=== PATIENT | male | born 1985 | race Caucasian/White ===

== ENCOUNTER 2020-01-23 16:33 | Emergency (ER) | payer MEDICAID, SELFPAY ==
[2020-01-23 16:39] VITALS: BP 159/97; RESP 20; TEMP 37.2; O2SAT 97; BMI 56.9
--- NOTE | 2020-01-23 16:47 | ED.GENADULT ---
HPI - General Adult General Chief complaint: General Medical Stated complaint: flu like Time Seen by Provider: 01/23/20 16:38 Source: patient Mode of arrival: ambulatory Limitations: no limitations History of Present Illness HPI narrative: Patient comes to the emergency room complaining of 2 days of body aches and dry cough. Patient states yesterday he had a headache, took ibuprofen and the headache resolved. Patient concerned that he may have COVID because his elderly mother has similar symptoms as well. Patient denies fever or chills MD complaint: Flu-like symptoms Related Data Allergies Allergy/AdvReac Type Severity Reaction Status Date / Time bee pollen [BEE STINGS] Allergy Unknown ANAPHYLAXIS Unverified 11/14/19 16:17 bees Allergy Unknown anaphylaxis Uncoded 02/25/19 00:00 Review of Systems Review of Systems: Constitutional : No Weight loss, No Fever, No Chills, complaining of fatigue and general malaise ENT/Mouth : No Hearing loss, No Ear Pain, No Nasal Congestion, No Sinus Pain, No Hoarseness, mild sore throat, No Rhinorrhea, No Swallowing Difficulty Eyes: No Eye Pain, No Swelling, No Redness, No Foreign Body, No Discharge, No Vision Changes Cardiovascular : No Chest Pain, No SOB, No Dyspnea on Exertion, No Orthopnea, No Edema, No Palpitations Respiratory : Complaining of mild dry Cough, No Sputum, No Wheezing, No Smoke Exposure, No Dyspnea Gastrointestinal : No Nausea, No Vomiting, No Diarrhea, No Constipation, No abdominal Pain, No Hematochezia, No Melena Genitourinary : no irregular bleeding, No Dysuria, No Urinary Frequency, No Hematuria, No Urinary Incontinence, No Urgency, No Flank Pain, No Urinary Flow Changes, No Hesitancy Musculoskeletal : No joint pain, No Myalgias, No Joint Swelling Skin : No Skin Lesions, No rash Neuro : No Weakness, No Numbness, No Paresthesias, No Loss of Consciousness, No Dizziness, No Headache Psych : No Anxiety/Panic, No Depression, No SI/HI/AH/VH, No Social Issues, Heme/Lymph: No Bruising, No Bleeding,No Lymphadenopathy Endocrine : No Polyuria, No Polydipsia, No Temperature Intolerance PMF Past Medical History Medical History HTN (hypertension) Social History Social History Advance Directives: No Advance Directives Information Provided: Yes Physical Exam Vital Signs: Vital Signs: Last Vital Signs Temp 99.0 F 01/23/20 16:39 Resp 20 01/23/20 16:39 BP 159/97 H 01/23/20 16:39 Pulse Ox 97 01/23/20 16:39 Body Mass Index 56.9 Appearance: Alert. Oriented X3. No acute distress. Eyes: Pupils equal, round and reactive to light. ENT: Pharynx normal. Neck: Normal inspection. Neck supple. No lymph nodes noted. No crepitus CVS: Normal heart rate and rhythm. Pulses normal. Normal S1 and S2 Respiratory: No respiratory distress. Breath sounds normal. No Wheezing. No rales Abdomen: Soft and nontender. No rigidity. No distention. good BS x4 Skin: Skin warm and dry. Normal skin color. Normal skin turgor. Extremities: No lower extremity edema. No lower extremity edema. No Lacerations. No Rash Neuro: Oriented X 3. No motor deficit. No sensory deficit. Moving all extermities. No slurred speech. Course Course Course Narrative: I discussed with the patient he may have a viral syndrome, patient instructed to self isolate, patient tested for COVID-19, results will be communicated to the patient in approximately 72 hours. Discharge Plan Discharge Clinical Impression: Viral syndrome Patient Disposition: Home, Self-Care Instructions: Viral Syndrome (ED) Additional Instructions: You were tested for COVID-19. The results will be available in approximately 72 hours. Please remain self isolated
== END 2020-01-23 17:09 | disposition home or self-care (01) ==
PROVIDERS: Emergency Provider Emergency Medicine
DX: B34.9 Viral infection, unspecified (principal); M79.10 Myalgia, unspecified site; Z20.828 Contact with and (suspected) exposure to other viral communicable diseases
CPT/HCPCS: 99283; U0003

== ENCOUNTER 2020-01-31 17:40 | Outpatient (REF) | payer MEDICAID, SELFPAY | END 2020-01-31 17:41 | disposition home or self-care (01) | LOC: HO.LAB 17:40 | PROVIDERS: Visit Provider Internal Medicine | DX: Z20.828 Contact with and (suspected) exposure to other viral communicable diseases (principal) | CPT/HCPCS: C9803; U0003 ==

== ENCOUNTER → 2022-11-18 14:38 | Outpatient (BNVA) | payer SELFPAY | PROVIDERS: Visit Provider Physician Assistant | DX: Z02.1 Encounter for pre-employment examination (principal) ==

== ENCOUNTER 2024-07-10 15:21 | Outpatient (REF) | payer MEDICAID, SELFPAY ==
--- OUTSIDE RECORDS SUMMARY | 2024-07-10 15:24 | XMS_ITS | Encounter Summary ---
Author Organization [employer] Address [address] [place] [address] Care Team Providers Care Clinical Nursing Assistant Name Role Phone LeanderTashia miller KIP Primary Care Provider [phone] Encounter Details Date Type Department Care Team (Latest Contact Info) Description 07/10/2024 Travel Social History Tobacco Use Types Packs/Day Years Used Date Smoking Tobacco: Never Smokeless Tobacco: Never Alcohol Use Standard Drinks/Week Comments Never 0 (1 standard drink = 0.6 oz pure alcohol) drinks 3 cups of liquor or 6 beers on occassion when family gets togther about 3x a month Alcohol Answer Date Recorded How often do you have a drink containing alcohol ? 2 07/10/2024 How many drinks containing a lcohol do you have on a typical day when you are drinking? 1 07/10/2024 How often do you have six or more drinks on one occasion? 0 07/10/2024 Depression Answer Date Recorded Patient Health Questionnaire-9 Score 1 07/10/2024 Patient Health Questionnaire-9 Score 1 07/10/2024 Last PHQ-9: Questionnaire Data Not on file 0 07/10/2024 Housing Stability Answer Date Recorded What is your housing situation today? I have noemí solis 07/03/[address] you li ve. Do you have problems with any of the following? None of the above 07/03/2024 Food Insecurity Answer Date Recorded Within the past 12 months, y ou worried that your food would run out before you got money to buy more: Never True 07/03/2024 Within the past 12 months,th e food you bought just didn't last and you didn't have enough money to get more: Never True 08/2024 Transportation Answer Date Recorded In the past 12 months, has l ack of transportation kept you from medical appts, meetings, work or from getting things needed for daily living? No 07/03/2024 Utilities Answer Date Recorded In the past 12 months, has t he electric, gas, oil or water company threatened to shut off services in your home? No 07/03/2024 Depression Answer Date Recorded Patient Health Questionnaire-2 Score 0 07/10/2024 Internet Access Answer Date Recorded Internet Access Q1 Yes 07/03/2024 Internet Access Q2 Not on file 07/03/2024 Sex and Gender Information Value Date Recorded Sex Assigned at Male 12/27/2021 10:14 AM EDT Legal Sex Male 10:14 AM EDT Gender Identity Choose not to disclose 10:14 AM EDT Sexual Orientation Choose not to disclose 2021 10:14 AM EDT documented as of this encounter Functional Status * Over the past 2 weeks, how often have you been bothered by any of the following problems? Question Answer Date of Assessment Author Patient Health Questionnaire -2 Score 0 07/10/2024 3:22 PM EDT Ángel Garcia MA * Little interest or pleasure in doing things Answer Date of Assessment Author Not at all 07/10/2024 3:22 PM EDT Ángel Garcia MA * Feeling down, depressed, or hopeless Answer Date of Assessment Author Not at all 07/10/2024 3:22 PM RODNEYT Ángel Garcia MA * Trouble falling or staying asleep, or sleeping too much Answer Date of Assessment Author Not at all 07/10/2024 3:22 PM EDT Ángel Garcia MA * Feeling tired or having little energy Answer Date of Assessment Author Several days 07/10/2024 3:22 PM EDT Ángel Garcia MA * Poor appetite or overeating Answer Date of Assessment Author Not at all 07/10/2024 3:22 PM RODNEYT Ángel Garcia MA * Feeling bad about yourself - or that you are a failure or have let yourself or your family down Answer Date of Assessment Author Not at all 07/10/2024 3:22 PM EDT Ángel Garcia MA * Trouble concentrating on things, such as reading the newspaper or watching television Answer Date of Assessment Author Not at all 07/10/2024 3:22 PM EDT Ángel Garcia MA * Moving or speaking so slowly that other people could have noticed? Or the opposite - being so fidgety or restless that you have been moving around a lot more than usual. Answer Date of Assessment Author Not at all 07/10/2024 3:22 PM EDT Ángel Garcia MA * Thoughts that you would be better off or hurting yourself in some way Answer Date of Assessment Author Not at all 07/10/2024 3:22 PM RODNEYT Ángel Garcia MA * Patient Health Questionnaire-9 Score Answer Date of Assessment Author 1 07/10/2024 3:22 PM RODNEYT Ángel Garcia MA * How difficult have these problems made it for you to do your work, take care of things at home, or get along with other people? Answer Date of Assessment Author Not difficult at all 07/10/2024 3:22 PM EDT Ángel Shah MA * Over the last 2 weeks, how often have you been bothered by any of the following problems? Question Answer Date of Assessment Author Feeling nervous, anxious, or on edge 0 07/10/2024 3:22 PM EDT Ángel Garcia MA Not being able to stop or co ntrol worrying 0 07/10/2024 3:22 PM EDT Ángel Garcia MA Worrying too much about diff erent things 1 07/10/2024 3:22 PM EDT Ángel Garcia MA Trouble relaxing 0 07/10/2024 3:22 PM EDT Ángel Quezada MA Being so restless that it is hard to sit still 0 07/10/2024 3:22 PM RODNEYT Ángel Garcia MA Becoming easily annoyed or irritable 0 07/10/2024 3:22 PM RODNEYT Ángel Garcia MA Feeling afraid as if somethi ng awful might happen 0 07/10/2024 3:22 PM EDT Ángel Garcia MA SHONDA-7 Total Score 1 07/10/2024 3:22 PM EDT Ángel Garcia MA documented as of this encounter Plan of Treatment Upcoming Encounters Date Type Department Care Team (Late st Contact Info) Description 08/09/2024 2:30 PM EDT Office Visit [facility] [address] [place] [address] Tashia Rey NP [address] [place] [address] documented as of this encounter Visit Diagnoses Not on filedocumented in this encounter Additional Health Concerns Assessment Noted Time PHQ-9 Depression Total Score: 1 07/11/19 3:22 PM EDT documented as of this encounter Care Teams Clinical Nursing Assistant Relationship Specialty Start Date End Date Tashia Rey NP [address] [place] [address] PCP - General Family Medicine 07/10/24 documented as of this encounter
--- OUTSIDE RECORDS SUMMARY | 2024-07-10 15:24 | XMS_ITS | Encounter Summary ---
Author Organization [employer] Address [address] [facility] 7[address] [place] [address] Care Team Providers Care Group Fitness Assistant Department Head Name Role Phone Tashia Rey NP Primary Care Provider [phone] Reason for Visit * Reason Comments new patient Encounter Details Date Type Department Care Team ([facility] st Contact Info) Description 07/10/2024 2:00 PM EDT Office Visit [facility] [address] [place] [address] Tashia Rey NP [address] [place] [address] Encounter for medical examination to establish care (Primary Dx); Encounter for health-related screening; Morbid obesity with BMI of 60.0-69.9, adult ([facility]); Encounter for immunization; Encounter for screening examination for sexually transmitted infection; Mild intermittent asthma without complication; Anaphylactic reaction to bee sting, undetermined intent, sequela; Elevated blood pressure reading in office without diagnosis of hypertension Social History Tobacco Use Types Packs/Day Years Used Date Smoking Tobacco: Never Smokeless Tobacco: Never Tobacco Cessation:Counseling Given: No Alcohol Use Standard Drinks/Week Comments Never 0 [...] AM EDT documented as of this encounter Last Filed Vital Signs Vital Sign Reading Time Taken Comments Blood Pressure 143/95 07/10/2024 2:09 PM EDT Pulse 92 07/10/2024 2:09 PM EDT Temperature 37.1 ??C (98.7 ??F) 07/10/2024 2:09 PM ED T Respiratory Rate 24 07/10/2024 2:09 PM EDT Oxygen Saturation 99% 07/10/2024 2:09 PM EDT Inhaled Oxygen Concentration - - Weight 185 kg (406 lb 12.8 oz) 07/10/2024 2:09 P M EDT Height 175.3 cm (5' 9 ) 07/10/2024 2:09 PM EDT Body Mass Index 60.07 07/10/2024 2:09 PM EDT documented in this encounter Functional Status * Over the [...] PM EDT Ángel Garcia MA * Trouble falling or [...] PM EDT Ángel Garcia MA * Feeling bad about [...] 3:22 PM EDT Ángel Garcia MA * Patient Health Questionnaire-9 Score Answer Date of Assessment Author 1 07/10/2024 3:22 PM EDT Ángel Garcia MA * How difficult have these problems made it for you to do your work, take care of things at home, or get along with other people? Answer Date of Assessment Author Not difficult at all 07/10/2024 3:22 PM EDT Ángel Mejia MA * Over the last 2 weeks, [...] to sit still 0 07/10/2024 3:22 PM EDT Ángel Garcia MA Becoming easily annoyed or irritable 0 07/10/2024 3:22 PM EDT Ángel Garcia MA Feeling afraid as if somethi ng awful might happen 0 07/10/2024 3:22 PM EDT Ángel Garcia MA SHONDA-7 Total Score 1 07/10/2024 3:22 PM EDT Ángel Garcia MA documented as of this encounter Plan of Treatment Upcoming Encounters Date Type Department Care Team (Late st Contact Info) Description 08/09/2024 2:30 PM EDT Office Visit [facility] [address] [place] [address] Tashia Rey NP [address] [place] [address] Scheduled Orders Name Type Priority Associated Diagnoses Orde r Schedule Lipid Panel, Standard Lab Routine Encounter for health-related screening Morbid obesity with BMI of 60.0-69.9, adult ([facility]) Expected: 07/10/2024 (Approximate), Expires: 07/10/2025 Comprehensive Metabolic Panel Lab Routine Encounter for health-related screening Morbid obesity with BMI of 60.0-69.9, adult ([facility]) Expected: 07/10/2024 (Approximate), Expires: 07/10/2025 Hemoglobin A1c Lab Routine Morbid obesity with BMI of 60.0-69.9, adult ([facility]) Expected: 07/10/2024 (Approximate), Expires: 07/10/2025 Hepatitis B Surface Antibody, Qualitative Lab Routine Encounter for screening examination for sexually transmitted infection Expected: 07/10/2024 (Approximate), Expires: 07/10/2025 Hepatitis B Core Antibody, Total Lab Routine Encounter for screening examination for sexually transmitted infection Expected: 07/10/2024 (Approximate), Expires: 07/10/2025 Hepatitis B surface antigen, EIA Lab Routine Encounter for screening examination for sexually transmitted infection Expected: 07/10/2024 (Approximate), Expires: 07/10/2025 Hepatitis C Antibody with Reflex to HCV, RNA, Quantitative, Real-Time PCR Lab Routine Encounter for screening examination for sexually transmitted infection Expected: 07/10/2024 (Approximate), Expires: 07/10/2025 HIV-1/2 Antigen and Antibodies, Fourth Generation, with Reflexes Lab Routine Encounter for screening examination for sexually transmitted infection Expected: 07/10/2024 (Approximate), Expires: 07/10/2025 Chlamydia/N. Gonorrhoeae RNA, TMA, Urine Microbiology Routine Encounter for screening examination for sexually transmitted infection Expected: 07/10/2024 (Approximate), Expires: 07/10/2025 Syphilis Screen Lab Routine Encounter for screening examination for sexually transmitted infection Expected: 07/10/2024 (Approximate), Expires: 07/10/2025 documented as of this encounter Visit Diagnoses Diagnosis Encounter for medical examination to establish care- Primary Encounter for health-related screening Morbid obesity with BMI of 60.0-69.9, adult ([facility]) Encounter for immunization Encounter for screening examination for sexually transmitted infection Mild intermittent asthma without complication Anaphylactic reaction to bee sting, undetermined intent, sequela Elevated blood pressure reading in office without diagnosis of hypertension documented in this encounter Additional Health Concerns Assessment Noted Time PHQ-9 Depression Total Score: 1 07/11/19 25 3:22 PM EDT documented as of this encounter Care Teams Group Fitness Assistant Department Head Relationship Specialty Start Date End Date Tashia Rey NP [address] [place] [address] PCP - General Family Medicine 07/10/24 documented as of this encounter
--- OUTSIDE RECORDS SUMMARY | 2024-07-10 15:24 | XMS_ITS | Encounter Summary ---
Author Organization [employer] Address [address] [facility] [address] [place] [address] Care Team Providers Care Field Software Engineer Name Role Phone Unavailable Primary Care Provider Unavailabl e Reason for Visit * Reason Onset Date Comments Chart Prep 07/09/2024 Encounter Details Date Type Department Care Team ([facility] st Contact Info) Description 07/09/2024 Telephone [facility] [address] [place] [address] Tashia Rey NP [address] [place] [address] Chart Prep Social History Tobacco Use Types Packs/Day Years Used Date Smoking Tobacco: Never Assessed Alcohol Answer Date Recorded How often do [...] AM EDT documented as of this encounter Miscellaneous Notes * Telephone Encounter - Joanna Grimm MA - 07/09/2024 10:26 AM EDT Chart Prep Labs: not applicable Images: not applicable Referrals: not applicable Vaccines due: Covid, Flu, PCV20, and Tdap Screenings: Hep C, HIV and Lipid Panel. Overdue care gaps: SBIRT, PHQ-9, SHONDA-7, and Disability screen documented in this encounter Plan of Treatment Upcoming Encounters Date Type Department Care Team (Late st Contact Info) Description 08/09/2024 2:30 PM EDT Office Visit [facility] [address] [place] [address] Tashia Rey NP [address] [place] [address] documented as of this encounter Visit Diagnoses Not on filedocumented in this encounter
--- OUTSIDE RECORDS SUMMARY | 2024-07-10 15:24 | XMS_ITS | Clinical Summary ---
Author Organization [employer] Address [address] [place] [address] 7t [place] [address] Care Team Providers Care Strip Catcher Name Role Phone Candido Tashia SHIN Primary Care Provider [phone] Allergies Active Allergy Reactions Criticality Noted Date Comments Bee Venom Angioedema High 07/10/2024 Medications EPINEPHrine (Epipen) 0.3 MG/0.3ML injection syringeIndicati ons:Anaphylacti c reaction to bee sting, undetermined intent, sequela Inject 0.3 mL (0.3 mg) as directed 1 (one) time for 1 dose. use as directed for allergic reaction and then call 911 0.3 mL 07/11/19 25 Active phentermine 15 MG capsuleIndicati ons:Morbid obesity with BMI of 60.0-69.9, adult ([facility]) Take 1 capsule (15 mg) by mouth before breakfast for 14 days. Take with topiramate 14 capsule 07/11/19 25 2024 Active topiramate (Topamax) 25 MG tabletIndicatio ns:Morbid obesity with BMI of 60.0-69.9, adult ([facility]) Take 1 tablet (25 mg) by mouth Once per day for 14 days. Take with phentermine 14 tablet 07/11/19 25 2024 Active albuterol 108 (90 Base) MCG/ACT inhalerIndicati ons:Mild intermittent asthma without complication Inhale 2 puffs every 6 (six) hours if needed for wheezing or shortness of breath. Every 4 to 6 hours as needed 18 g 2 07/11/19 25 Active Blood Pressure kitIndications: Elevated blood pressure reading in office without diagnosis of hypertension 1 Units Once per day. 1 kit 07/11/19 25 Active albuterol 108 (90 Base) MCG/ACT inhaler Inhale 2 puffs. 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 Anxiety state 08/09/2011 Asthma 08/09/2011 Attention deficit hyperactivity disorder 012 Elevated blood pressure read ing without diagnosis of hypertension 08/09/2011 Headache 08/09/2011 Obesity 08/09/2011 Encounters Date Type Department Care Team Description 07/10/2024 2:00 PM EDT Office Visit [facility] [address] [place] [address] Tashia Rey NP Encounter for medical examination to establish care (Primary Dx); Encounter for health-related screening; Morbid obesity with BMI of 60.0-69.9, adult ([facility]); Encounter for immunization; Encounter for screening examination for sexually transmitted infection; Mild intermittent asthma without complication; Anaphylactic reaction to bee sting, undetermined intent, sequela; Elevated blood pressure reading in office without diagnosis of hypertension 07/10/2024 Travel 07/09/2024 Telephone [facility] [address] [place] [address] Tashia Rey NP Chart Prep 07/03/2024 Patient Outreach [facility] [address] [place] [address] Tashia Rey NP Pre-visit Planning (SDOH negative. Tobacco screening negative.) 05/10/2024 Population Health Risk Score [facility] [address] [id number] Provider, Population Health Generic 04/22/2024 Telephone [facility] [address] [place] [address] Silvano Estrada MD NEW PT from Last 3 Months Immunizations Immunization Administration Dates Next Due DTP 02/07/1991, 0,07/30/1987,1987,02/05/1987 Hep B, Adolescent or Pediatric 04/09/2001,1999,11/24/1998 Hib (HbOC) 04/09/1991 IPV 08/31/1989, 8,05/07/1987,1986 Influenza injectable quadriv alent preservative free 12/06/2018 Influenza, Split (incl. roc fied surface antigen) 03/05/2013,03/23/2012 MMR 02/07/1991,05/04/1989 Pneumococcal Conjugate PCV 20 07/10/2024 TD (adult), 2 Lf tetanus tox oid, preservative free, adsorbed 11/24/1998 Td (adult), 5 Lf tetanus tox oid, preservative free, adsorbed 11/09/2014 Tdap 07/10/2024, 1,08/31/1989,1987,05/07/1987,02/05/1987 Family History Medical History Relation Name Comments Heart disease Maternal Grandfather Heart disease Maternal Grandmother Asthma Mother Hypertension Mother Relation Name Status Comments Maternal Grandfather Maternal Grandmother Mother Social History Tobacco Use Types Packs/Day Years [...] not to disclose 2021 10:14 AM EDT Last Filed Vital Signs Vital Sign Reading [...] Mass Index 60.07 07/10/2024 2:09 PM EDT Plan of Treatment Upcoming Encounters Date Type Department Care Team (Late st Contact Info) Description 08/09/2024 2:30 PM EDT Office Visit [facility] [address] [place] [address] Tashia Rey NP [address] [place] [address] Health Maintenance Due Date Last Done Comments Depression Screening 1986 HIV Screening 1986 Lipid Panel 1986 Family Planning (PISQ) 2001 Hepatitis C Screening 2004 COVID-19 Vaccine ( season) 2023 Influenza Vaccine (#1) 2023 9, 03/05/2013, 03/23/2012 SDOH Screening 07/03/2025 07/03/2024 Alcohol/Substance Use Screening 07/10/2025 07/10/2024 Tobacco Screening 07/10/2025 07/10/2024 DTaP/Tdap/Td Vaccines (7 - Td or Tdap) 07/10/2034 07/10/2024, 11/09/2014, 11/24/1998, Additional history exists Zoster Vaccines (1 of 2) 2036 RSV Patients and Patients Aged 60 years or older (1 - 1-dose 75+ series) 2061 IPV Vaccines Completed 08/31/1989, 03/1987, 05/07/1987, Additional history exists HIB Vaccines Completed 04/09/1991 Hepatitis B Vaccines Completed 04/09/2001, 11/05/1999, 11/24/1998 Pneumococcal Vaccine: Pediatrics (0 to 5 Years) and At-Risk Patients (6 to 49) Years) Completed 07/10/2024 HPV Vaccines Aged Out No longer eligi ble based on patient's age to complete this topic Hepatitis A Vaccines Aged Out No long er eligible based on patient's age to complete this topic Meningococcal B Vaccine Aged Out No l onger eligible based on patient's age to complete this topic Meningococcal Vaccine Aged Out No georgiana sharlene eligible based on patient's age to complete this topic RSV under 20 months Aged Out No longe r eligible based on patient's age to complete this topic Rotavirus Vaccines Aged Out No longer eligible based on patient's age to complete this topic Insurance [address] [place] [address] [facility] Member Subscriber Plan / Payer (Ef fective 2022-Present) Name:Chico Pacheco Relation to Subscriber:Self Name:Chico Pacheco Payer ID:Not on file Group ID:Not on file Type:Medicaid Address: [address] Member Subscriber Plan / Payer (Ef fective 2024-Present) Name:Chico Pacheco Relation to Subscriber:Self Name:Chico Pacheco Payer ID:Not on file Group ID:Not on file Type:Medicaid Address: [address] Care Teams Strip Catcher Relationship Specialty Start Date End Date Tashia Rey NP [address] [place] [id number] PCP - General Family Medicine 07/10/24
[2024-07-10 16:40] LABS: Estimated Average Glucose 105 mg/dL; Hemoglobin A1C 137.5978 umol/L; Hemoglobin A1c % 5.3 % (<6.0); Total Hemoglobin (HGBA1C) 3978.9427 umol/L
[2024-07-10 17:47] LABS: Alanine Aminotransferase 81 U/L (0-40); Alkaline Phosphatase 47 U/L (39-117); Anion Gap 12 (12-20); Aspartate Amino Transferase 42 U/L (5-37); Bilirubin Total 0.5 mg/dL (0.0-1.0); Blood Urea Nitrogen 12 mg/dL (9-16); Calcium 8.6 mg/dL (8.4-10.2); Carbon Dioxide 25 mmol/L (22-29); Chloride 108 mmol/L (96-108); Cholesterol 153 mg/dL (<200); Estimated Glomerular Filt Rate > 60; Glucose Random 93 mg/dL (60-115); HDL Cholesterol 38 mg/dL (>40); LDL Cholesterol Calculated 102 mg/dL (<100); Potassium 4.6 mmol/L (3.3-5.1); Sodium 140 mmol/L (135-145); Total Protein 7.1 g/dL (6.5-8.0); Triglycerides 69 mg/dL (<150)
[2024-07-11 07:48] LABS: Syphilis Screen Nonreactive (Nonreactive)
[2024-07-11 08:08] LABS: HBS Num1 5.85 mIU/mL (0-7.99); HBc Num1 0.11 S/CO (0.00-0.79); HBsAGNum1 0.44 S/CO (0.00-0.99); HIV AB/AG Nonreactive (Nonreactive); HIV Num 1 0.06 S/CO (0.00-0.99); Hepatitis B Core Antibody Nonreactive (Nonreactive); Hepatitis B Surface Antigen Negative (Negative); ~HepC Num1 0.11 S/CO (0.00-0.79); ~Hepatitis B Surface Antibody NONREACTIVE (Nonreactive); ~Hepatitis C Antibody Nonreactive (Nonreactive)
== END 2024-07-10 15:22 | disposition home or self-care (01) ==
LOC: HO.HHCL 15:21
PROVIDERS: Visit Provider Nurse Practitioner
DX: E66.01 Morbid (severe) obesity due to excess calories (principal); Z11.3 Encounter for screening for infections with a predominantly sexual mode of transmission; Z68.44 Body mass index [BMI] 60.0-69.9, adult
CPT/HCPCS: 36415; 80053; 80061; 83036; 86704; 86706; 86780; 86803; 87340; 87389

== ENCOUNTER 2024-10-04 11:47 | Outpatient (REF) | payer MEDICAID, SELFPAY ==
--- OUTSIDE RECORDS SUMMARY | 2024-10-04 11:50 | XMS_ITS | Clinical Summary ---
Author Organization [employer] Address [address] [place] [address] [address] [place] [address] Care Team Providers Care Bag Inspector Name Role Phone Tashia Rey NP Primary Care Provider [phone] Allergies Active Allergy Reactions Criticality Noted Date Comments Bee Venom Angioedema High 07/10/2024 Medications EPINEPHrine (Epipen) 0.3 MG/0.3ML injection syringeIndicatio ns:Anaphylactic reaction to bee sting, undetermined intent, sequela Inject 0.3 mL (0.3 mg) as directed 1 (one) time for 1 dose. use as directed for allergic reaction and then call 911 0.3 mL 07/11/19 25 Active albuterol 108 (90 Base) MCG/ACT inhalerIndicatio ns:Mild intermittent asthma without complication Inhale 2 puffs every 6 (six) hours if needed for wheezing or shortness of breath. Every 4 to 6 hours as needed 18 g 2 07/11/19 25 Active Blood Pressure kitIndications:E levated blood pressure reading in office without diagnosis of hypertension 1 Units Once per day. 1 kit 07/11/19 25 Active topiramate (Topamax) 25 MG tabletIndication s:Morbid obesity with BMI of 60.0-69.9, adult ([facility]) Take 1 tablet (25 mg) by mouth Once per day. Take with phentermine 30 tablet 1 08/10/19 25 025 Active Tirzepatide-Weig ht Management 2.5 MG/0.5ML solution auto-injectorInd ications:Morbid obesity with BMI of 60.0-69.9, adult ([facility]) Inject 0.5 mL (2.5 mg) under the skin 1 (one) time per week for 28 days. 2 mL 09/12/19 25 025 Active phentermine 15 MG capsuleIndicatio ns:Morbid obesity with BMI of 60.0-69.9, adult ([facility]) Take 1 capsule (15 mg) by mouth before breakfast for 14 days. 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 He is advised to upload BP log into [employer] for review when he gets home and medication will be sent to pharmacy on file pending home readings Headache 08/09/2011 Morbid obesity with BMI of 60.0-69.9, adult 07/28 Assessment & Plan (10/01/2024 6:44 AM EDT): -discussed insurance requirements for pharmacological interventions for weight loss which includes unsuccessful trial of oral medications and lifestyle modifications prior to injection approval -patient is agreeable to trial topamax as phentermine is contraindicated in the setting of elevated BP readings. Medication side effects are reviewed -Dietary Recommendations: Fruits, vegetables, whole grains, protein foods, and fat-free or low-fat dairy products are healthy choices. Eat different types of protein foods in your diet. This can include seafood, lean meats, poultry, beans, peas, lentils, nuts, seeds, soy products, and eggs. Limit foods and beverages higher in added sugars, saturated fat, and sodium. Exercise Recommendations: At least 150 minutes of moderate-intensity physical activity per week, or an equivalent combination of moderate- and vigorous-intensity activity -metabolic labs ordered -follow-up 2 weeks Assessment & Plan (09/11/2024 10:19 AM EDT): -patient will benefit from Zepbound to assist with weight management. -No contraindications identified: hx of pancreatitis, hx of medullary thyroid cancer. No known retinopathy. -Discussed side effects with patient: side effects of GLP1: nausea, vomiting, diarrhea & risk of pancreatitis. -discussed mechanism of action with patient which include eating small portions and not eating through sensation of fullness. -Advised to keep medication refrigerated, but do not freeze -Recommended to decrease soda and sugary beverage consumption. -Recommended at least 20 g per meal of protein to assist with satiety. -Recommended at least 150 min/week of moderate intensity exercise. -fire captain referral placed -advised to continue topamax while GLP med approval pending Encounters Date Type Department Care Team Description 10/04/2024 11:00 AM EDT Office Visit [facility] [address] [place] [phone] Tashia Rey NP Morbid obesity with BMI of 60.0-69.9, adult ([facility]) (Primary Dx); Encounter for immunization 10/04/2024 Travel 10/02/2024 Telephone [facility] [address] [place] [phone] Ángel Garcia MA CHARTPREP 09/11/2024 Results Follow-Up [facility] [address] [place] [phone] Tashia Rey NP Lipid Panel, Standard, Comprehensive Metabolic Panel, Hemoglobin A1c, Additional followed-up results: 6 09/09/2024 Telephone [facility] [address] [place] [address] Ángel Garcia MA CHARTPREP 08/16/2024 Refill [facility] [address] [place] [address] Tashia Rey NP Morbid obesity with BMI of 60.0-69.9, adult ([facility]) 08/09/2024 2:30 PM EDT Office Visit [address] [address] Tashia Rey NP Encounter for immunization (Primary Dx); Morbid obesity with BMI of 60.0-69.9, adult ([facility]); Elevated blood pressure reading without diagnosis of hypertension; Abnormal liver enzymes; Elevated lipids; Low HDL (under 40); Dietary counseling; Exercise counseling 08/09/[address] [address] Tashia Rey NP Morbid obesity with BMI of 60.0-69.9, adult ([facility]) 08/09/2024 Travel 08/08/[address] [address] Ángel Garcia MA CHARTPREP 07/29/[address] [address] Tashia Rey NP New Med Request 07/10/2024 2:00 PM EDT Office Visit [address] [address] Tahsia Rey NP Encounter to establish care (Primary Dx); Encounter for health-related screening; Morbid obesity with BMI of 60.0-69.9, adult ([facility]); Encounter for immunization; Encounter for screening examination for sexually transmitted infection; Mild intermittent asthma without complication; Anaphylactic reaction to bee sting, undetermined intent, sequela; Elevated blood pressure reading in office without diagnosis of hypertension 07/10/[address] [address] Loyda Chiang RN 07/10/2024 Travel 07/09/[address] [address] Tashia Rey NP Chart Prep from Last 3 Months Immunizations Immunization Administration Dates Next Due DTP 02/07/1991, 0,07/30/1987,1987,02/05/1987 Hep B, Adolescent or Pediatric 04/09/2001,1999,11/24/1998 Hep B, adult 10/04/2024,08/09/2024 Hib (HbOC) 04/09/1991 IPV 08/31/1989, 8,05/07/1987,1986 Influenza [...] Sign Reading Time Taken Comments Blood Pressure 140/86 10/04/2024 11:02 AM EDT Pulse 88 10/04/2024 11:02 AM EDT Temperature 37 C (98.6 F) 10/04/2024 11:02 AM EDT Respiratory Rate 22 10/04/2024 11:02 AM EDT Oxygen Saturation 97% 10/04/2024 11:02 AM EDT Inhaled Oxygen Concentration - - Weight 188 kg (414 lb) 10/04/2024 11:02 AM EDT Height 175.3 cm (5' 9 ) 10/04/2024 11:02 AM EDT Body Mass Index 61.14 10/04/2024 11:02 AM EDT Plan of Treatment Upcoming Encounters Date Type Department Care Team (Late st Contact Info) Description 11/29/2024 11:30 AM EDT Clinical Support [facility] [address] [place] [phone] 12/04/2024 11:30 AM EDT Office Visit [facility] [address] [place] [phone] Tashia Rey NP [address] [place] [address] Health Maintenance Due Date Last Done Comments Family Planning (PISQ) 2001 HPV Vaccines (1 - 3-dose series) 2001 COVID-19 Vaccine ( - 2023- season) 2023 Influenza Vaccine (#1) 2024 9, 03/05/2013, 03/23/2012 Alcohol/Substance Use Screening 07/10/2025 07/10/2024 Depression Screening 07/10/2025 07/10/2024, 07/11/19 Disability Screening 07/10/2025 07/10/2024 SDOH Screening 07/10/2025 07/10/2024 Tobacco Screening 08/09/2025 08/09/2024 Lipid Panel 07/10/2029 07/10/2024 DTaP/Tdap/Td Vaccines (7 - Td or Tdap) 07/10/2034 07/10/2024, 11/09/2014, 11/24/1998, Additional history exists Zoster Vaccines (1 of 2) 2036 RSV Patients and Patients Aged 60 years or older (1 - 1-dose 75+ series) 2061 IPV Vaccines Completed 08/31/1989, 03/1987, 05/07/1987, Additional history exists HIB Vaccines Completed 04/09/1991 HIV Screening Completed 07/10/2024 Hepatitis C Screening Completed 07/10/2024 Pneumococcal Vaccine: Pediatrics (0 to 5 Years) and At-Risk Patients (6 to 49) Years Completed 07/10/2024 Hepatitis B Vaccines Completed 10/04/2024, 08/09/2024, 04/09/2001, Additional history exists Hepatitis A Vaccines Aged Out No long [...] on patient's age to complete this topic Procedures Procedure Name Priority Date/Time Associated Diagnosis Comments SYPHILIS SCREEN Routine 07/10/2024 3:23 PM EDT Encounter for screening examination for sexually transmitted infection HIV 1/2 ANTIGEN/ANTIBODY, FOURTH GENERATION W/RFL Routine 07/10/2024 3:23 PM EDT Encounter for screening examination for sexually transmitted infection HEPATITIS C AB W/REFL TO HCV RNA, QN, PCR Routine 07/10/2024 3:23 PM EDT Encounter for screening examination for sexually transmitted infection HEPATITIS B SURFACE ANTIGEN, EIA Routine 07/10/2024 3:23 PM EDT Encounter for screening examination for sexually transmitted infection HEPATITIS B CORE AB TOTAL Routine 07/10/2024 3:23 PM EDT Encounter for screening examination for sexually transmitted infection HEPATITIS B SURFACE ANTIBODY, QUALITATIVE Routine 07/10/2024 3:23 PM EDT Encounter for screening examination for sexually transmitted infection HEMOGLOBIN A1C Routine 07/10/2024 3:23 PM EDT Morbid obesity with BMI of 60.0-69.9, adult (CMS/HCC) COMPREHENSIVE METABOLIC PANEL Routine 07/10/2024 3:23 PM EDT Encounter for health-related screening Morbid obesity with BMI of 60.0-69.9, adult (CMS/HCC) LIPID PANEL, STANDARD Routine 07/10/2024 3:23 PM EDT Encounter for health-related screening Morbid obesity with BMI of 60.0-69.9, adult (CMS/HCC) from Last 3 Months Results * Syphilis Screen (07/10/2024 3:23 PM EDT) Syphilis Screen Nonreactive Nonreactive [facility] Blood Venous blood specimen / Unknown 07/10/2024 3:23 PM EDT 07/10/2024 4:11 PM EDT us Tashia Rey [facility] LAB BLOOD ORDERABLES Final Resu lt Performing Organization Address [facility]/ZIP Co de Phone Number [facility] [address] [place] [phone] * Hepatitis C Antibody with Reflex to HCV, RNA, Quantitative, Real-Time PCR (07/10/2024 3:23 PM EDT) Hepatitis C Antibody Nonreactive Nonreactive [facility] Comment:Antibodies to HCV no t detected; does not exclude early acuteHCV infection. Blood Venous blood specimen / Unknown 07/10/2024 3:23 PM EDT 07/10/2024 4:11 PM EDT us Tashia Tabor [facility] BLOOD ORDERABLES Final Resu lt Performing Organization Address [facility] Co de Phone Number [facility] [address] [place] [phone] * Hepatitis B surface antigen, EIA (07/10/2024 3:23 PM EDT) Hepatitis B Surface Ag Negative Negative [facility] Blood Venous blood specimen / Unknown 07/10/2024 3:23 PM EDT 07/10/2024 4:11 PM EDT us Tashia Rey [facility] BLOOD ORDERABLES Final Resu lt Performing Organization Address City/[facility]/ZIP Co de Phone Number [facility] [address] [place] [phone] * Hepatitis B Core Antibody, Total (07/10/2024 3:23 PM EDT) Hepatitis B Core Antibody Nonreactive Nonreactive [facility] Blood Venous blood specimen / Unknown 07/10/2024 3:23 PM EDT 07/10/2024 4:11 PM EDT us Tashia Tabor [facility] BLOOD ORDERABLES Final Resu lt Performing Organization Address [facility]/ZIP Co de Phone Number [facility] [address] [place] [phone] * HIV-1/2 Antigen and Antibodies, Fourth Generation, with Reflexes (07/10/2024 3:23 PM EDT) HIV AB/AG Nonreactive Nonreactive [facility] Comment:HIV-1 p24 Ag and/or HIV-1/HIV-2 Ab not detected.A test result that is nonreactive does not exclude thepossibility of exposure to or infection with HIV-1 and/orHIV-2. Nonreactive results in this assay for individualswith prior exposure to HIV-1 and/or HIV-2 may be due toantigen and antibody levels that are below the limit ofdetection of this assay.The [employer] HIV Ag/Ab Combo assay result andsupplemental assay results should be interpreted inconjunction with the patient's clinical presentation,history and other laboratory results. If the results areinconsistent with clinical evidence, additional testing issuggested to confirm the result. Blood Venous blood specimen / Unknown 07/10/2024 3:23 PM EDT 07/10/2024 4:11 PM EDT [facility] Final Resu lt Performing Organization Address [facility]/ZIP Co de Phone Number [facility] [address] [place] [phone] * Hepatitis B Surface Antibody, Qualitative (07/10/2024 3:23 PM EDT) ~Hepatitis B Surface Antibody NONREACTIVE Nonreactive [facility] Comment:Nonreactive: < 8.00 mIU/mL Blood Venous blood specimen / Unknown 07/10/2024 3:23 PM EDT 07/10/2024 4:11 PM EDT [facility] LAB BLOOD ORDERABLES Final Resu lt Performing Organization Address City/[facility]/ZIP Co de Phone Number [facility] [address] [place] [phone] * Hemoglobin A1c (07/10/2024 3:23 PM EDT) Hemoglobin A1c 5.3 <6.0 % [facility] Comment:Hemoglobin A1C Refer ence Range Adults: 4.8 - 6.0 % Non diabetic: < 6.0 % Goal: < 7.0 %Additional Action Suggested: > 8.0 %Note: Hemoglobin A1c results are invalid for patients with abnormal amounts of HbF. Blood transfusions may impact the HbA1c concentration in the patient sample. Estimated Average Glucose 105 mg/dL [facility] Comment:eAG = Estimated ave rage glucose which is %A1C expressed asaverage glucose, using the formula of the O7A-HdddtamEasenxi Glucose study (ADAG), Diabetes Care, Vol.31,#8,Sep. 2007 Blood Venous blood specimen / Unknown 07/10/2024 3:23 PM EDT 07/10/2024 4:11 PM EDT Tashia Rey [facility] BLOOD ORDERABLES Final Resu lt Performing Organization Address [facility] Co de Phone Number [facility] [address] [place] [phone] * (ABNORMAL) Lipid Panel, Standard (07/10/2024 3:23 PM EDT) Triglycerides 69 <150 mg/dL [facility] Comment:Desirable Triglyceri de: less than 150 mg/dLBorderline High Triglyceride 150-199 mg/dLHigh Triglyceride: 200-499 mg/dLVery High Triglyceride: greater than or equal to 5OO mg/dL Cholesterol 153 <200 mg/dL [facility] Comment:Desirable Cholestero l: less than 200 mg/dLBorderline High Cholesterol: 200-239 mg/dLHigh Cholesterol: greater than 239 mg/dL LDL Cholesterol Calculated 102(H) <100 mg/dL [facility] Comment:Desirable LDL: less than 100 mg/dLNear Optimal/Above Optimal LDL: 110- 129 mg/dLBorderline High LDL: 130-159 mg/dLHigh LDL: 160-189 mg/dLVery High LDL: greater than or equal to 190 mg/dL HDL Cholesterol 38(L) >40 mg/dL [facility] Comment:Desirable HDL: great er than 40 mg/dL Note: This HDL assay may give artificially low results in patients with liver disease. Blood Venous blood specimen / Unknown 07/10/2024 3:23 PM EDT 07/10/2024 4:11 PM EDT us Tashia Rey [facility] BLOOD ORDERABLES Final Resu lt [facility] [address] [place] [phone] * (ABNORMAL) Comprehensive Metabolic Panel (07/10/2024 3:23 PM EDT) Sodium 140 135 - 145 mmol/L [facility] Potassium 4.6 3.3 - 5.1 mmol/L [facility] Chloride 108 96 - 108 mmol/L [facility] Carbon Dioxide 25 22 - 29 mmol/L [facility] Anion Gap 12 12 - 20 [facility] Urea Nitrogen (BUN) 12 9 - 16 mg/dL [facility] Creatinine, Serum 0.75 0.5 - 1.4 mg/dL [facility] Estimated Glomerular Filt Rate >60 [facility] Comment:Chronic Kidney Disea se: Estimated GFR < 60 mL/min/[id number] Kidney Disease: Estimated GFR < 15 mL/min/1.73m2 Glucose 93 60 - 115 mg/dL [facility] Calcium 8.6 8.4 - 10.2 mg/dL [facility] Bilirubin, Total 0.5 0.0 - 1.0 mg/dL [facility] Aspartate Amino Transferase 42(H) 5 - 37 U/L [facility] Alanine Aminotransferase 81(H) 0 - 40 U/L [facility] Total Protein 7.1 6.5 - 8.0 g/dL [facility] Albumin Level 4.0 3.5 - 5.0 g/dL [facility] Alkaline Phosphatase 47 39 - 117 U/L [facility] Blood Venous blood specimen / Unknown 07/10/2024 3:23 PM EDT 07/10/2024 4:11 PM EDT us Tashia Rey [facility] BLOOD ORDERABLES Final Resu lt [facility] [address] [place] [phone] from Last 3 Months Insurance Care Teams Bag Inspector Relationship Specialty Start Date End Date Tashia Rey NP [address] [place] [address] PCP - General Family Medicine 07/10/24
[2024-10-04 13:48] LABS: Hematocrit 43.9 % (42.0-52.0); Hemoglobin 14.9 g/dl (14.0-18.0); Imm Gran Abs Auto 0.02 X10*3/uL (0.00-0.03); Imm Gran Pct Auto 0.3 % (0.0-0.4); Lymphocytes Absolute Auto 1.7 X10*3/uL (1.2-4.9); MANUAL DIFF FLAG SCAN; Mean Corpuscular HGB Conc 33.9 g/dl (31.0-36.0); Mean Corpuscular Hemoglobin 31.0 pg (27.0-33.0); Mean Corpuscular Volume 91.5 fL (80.0-98.0); NRBC Abs Auto 0.000 X10*3/uL (0.0-0.012); NRBC Pct Auto 0.0 /100WBC (0.0-0.2); PLT CLUMP 1; Red Blood Count 4.80 X10*6/uL (4.60-5.80); SCAN SMEAR FLAG 1
[2024-10-04 13:49] LABS: White Blood Count 6.8 X10*3/uL (4.8-10.8)
[2024-10-04 14:00] LABS: Alanine Aminotransferase 54 U/L (0-40); Albumin Level 4.2 g/dL (3.5-5.0); Alkaline Phosphatase 50 U/L (39-117); Aspartate Amino Transferase 32 U/L (5-37); Total Protein 7.0 g/dL (6.5-8.0)
[2024-10-04 14:08] LABS: Platelet Count 167 X10*3/uL (160-400)
== END 2024-10-04 11:48 | disposition home or self-care (01) ==
LOC: HO.HHCL 11:47
PROVIDERS: Visit Provider Nurse Practitioner
DX: R74.8 Abnormal levels of other serum enzymes (principal)
CPT/HCPCS: 36415; 80076; 85025

== ENCOUNTER 2025-01-01 14:39 | Emergency (ER) | payer MEDICAID, SELFPAY ==
[2025-01-01 14:42] VITALS: BP 150/87; PULSE 98; RESP 18; TEMP 36.5; O2SAT 97; BMI 59.3
--- NOTE | 2025-01-01 14:45 | ED_ITS ---
HPI - General Adult General Chief complaint: Allergic Reaction Stated complaint: Dizziness, Hard Time Breathing Time Seen by Provider: 01/01/25 15:04 Source: patient Mode of arrival: ambulatory Limitations: no limitations History of Present Illness ED Provider: [facility] narrative: 39-year-old male with a history of anaphylaxis to bee stings, was stung twice by black check it, self administered epinephrine proximally 30 minutes prior to arrival to ER, states started developing some wheezing, at the time of my evaluation reports just itching over the head and slight swelling around the eyes, no shortness of breath at this time Related Data Previous Rx's ?Medication ?Instructions ?Recorded epinephrine 0.3 mg/0.3 mL 0.3 mg (0.3 mL) IM Q10M PRN 01/01/25 injection, auto-injector (EpiPen anaphylaxis #2 ea 2-Pepe) prednisone 20 mg tablet 40 mg (2 x 20 mg) PO DAILY 3 days 01/01/25 #6 tabs Allergies Allergy/AdvReac Type Severity Reaction Status Date / Time bee pollen (BEE STINGS) Allergy Unknown ANAPHYLAXIS Verified 01/01/25 15:09 bees Allergy Unknown anaphylaxis Uncoded 01/01/25 15:09 Review of Systems Constitutional: Constitutional: Reports as per [facility] Past Medical History Medical History HTN (hypertension) Social History Social History Smoked in Last 30 Days: No Use of substances other than those prescribed or required for medical reasons: No Advance Directives: No Advance Directives Information Provided: Yes Do you have a plan to hurt others: No Plan Physical Exam ED Exam Exam: General: ?Appears of stated age, slight puffiness around the eyes ? ?no angioedema ? Neck: Supple, no LAD ? ?CV: RRR, no obvious murmurs appreciated ? ?Resp: ?No wheezing rales rhonchi no stridor moving air well ? Abd: ?Bowel sounds are present, no tenderness no rebound no rigidity ? ?MSK: FROM, strength 5/5 all extremities ? Skin: Warm, dry, intact, ? ?Neuro: ?Alert and oriented x3, moving upper and lower extremities symmetrically, no obvious facial asymmetry noted, cranial nerves 2-12 intact Vital Signs: Vital Signs - 24 hr 01/01/25 14:42 01/01/25 15:05 01/01/25 15:34 Temperature 97.7 F Pulse Rate 98 100 88 Respiratory Rate 18 21 H 18 Blood Pressure 150/87 H 156/94 H 141/85 H Pulse Oximetry 97 95 96 Oxygen Delivery Method Room Air Room Air Room Air 01/01/25 17:38 01/01/25 18:17 Temperature 98 F 98 F Pulse Rate 84 84 Respiratory Rate 21 H 21 H Blood Pressure 147/98 H 147/98 H Pulse Oximetry 94 94 Oxygen Delivery Method Room Air Room Air BMI result Body Mass Index 59.3 Course Course Course Narrative: RME: 39 year male history of bee allergy presents to ED for shortness of breath for sensation of throat closing after being stung by a bee in scalp. Patient given himself epi shot. Benadryl Solu-Medrol Pepcid ordered. Patient brought back to the ER Medications Administered Discontinued Medications Generic Name Dose Route Start Last Admin Trade Name Freq PRN Reason Stop Dose Admin Diphenhydramine HCl 50 mg 01/01/25 14:44 01/01/25 15:09 Diphenhydramine Hcl 50 Mg/Ml Vial IVPUSH 01/01/25 14:45 50 mg ONCE ONE Administration Famotidine 20 mg 01/01/25 14:44 01/01/25 15:09 Famotidine/Pf 20 Mg/2 Ml Vial IVPUSH 01/01/25 14:45 20 mg ONCE ONE Administration Methylprednisolone Sodium Succinate 125 mg 01/01/25 14:44 01/01/25 15:09 Methylprednisolone Sod Succ 125 Mg/2 Ml Vial IVPUSH 01/01/25 14:45 125 mg ONCE ONE Administration Discharge Plan Discharge Clinical Impression: Allergic reaction Patient Disposition: Home, Self-Care Additional Instructions: Continue taking steroids starting tomorrow , EpiPen use as needed , worsening issues or concerns come back to the ER Prescriptions: New prednisone 20 mg tablet 40 mg PO DAILY 3 Days Qty: 6 0RF epinephrine [EpiPen 2-Pepe] 0.3 mg/0.3 mL auto-injector 0.3 mg IM Q10M PRN (Reason: anaphylaxis) Qty: 2 0RF Rx Instructions: for 2 doses Interventions: ED Discharge Assessment Last Done: 01/01/25 18:17 Discharge Date/Time: 01/01/25 18:19 Print Language: Slovenian
[2025-01-01 15:05] VITALS: BP 156/94; PULSE 100; RESP 21; O2SAT 95
--- NOTE | 2025-01-01 15:19 | PC.NURSE ---
a&ox4. vss and up to date. nsr on the nurse monitoring. pt presents to the ED w/ a hx of allergens to bees. 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 pt reports he then felt sob w/ associated dizziness and palpitations. pt then self administered IM epinephrine w/ good effect. pt denies ever having to self administer medications prior to today. upon ED arrival - no audible wheezing noted. to apparent respiratory distress. no sob/wob noted. speaking in full/clear sentences w/o difficulty. slight swelling noted to around eyes. 20gIV placed in the left AC - medication administered per provider order. effectiveness pending. family bedside for support. plan of care ongoing. call weaver placed within reach.
[2025-01-01 15:34] VITALS: BP 141/85; PULSE 88; RESP 18; O2SAT 96
--- NOTE | 2025-01-01 16:15 | PC.NURSE ---
vss and up to date. nsr on the manager cardiac cath. pt remains on RA w/o difficulty. speaking in full/clear sentences w/o difficulty. no sob/wob noted. respirations remain even/unlabored. plan of care ongoing. call weaver placed within reach.
[2025-01-01 17:38] VITALS: BP 147/98; PULSE 84; RESP 21; TEMP 36.6; O2SAT 94
[2025-01-01 18:17] VITALS: BP 147/98; PULSE 84; RESP 21; TEMP 36.6; O2SAT 94
== END 2025-01-01 18:19 | disposition home or self-care (01) ==
PROVIDERS: Emergency Provider Emergency Medicine
DX: T63.441A Toxic effect of venom of bees, accidental (unintentional), initial encounter (principal); Y92.9 Unspecified place or not applicable; R42 Dizziness and giddiness
CPT/HCPCS: 96374; 96375; 99284; J1200; J1308; J2919